=== PATIENT | male | born 1980 | race Caucasian/White ===

== ENCOUNTER 2021-09-11 18:23 | Emergency (ER) | payer MEDICARE, SELFPAY ==
[2021-09-11 18:25] VITALS: BP 174/107; PULSE 78; RESP 15; TEMP 36.7; O2SAT 98; BMI 35.1
[2021-09-11 18:28] VITALS: BP 174/107; PULSE 78; RESP 15; TEMP 36.7; O2SAT 98
--- NOTE | 2021-09-11 18:34 | ED.RN ---
LEFT PLANTAR FOOT ULCER. GRANULATION TISSUE PRESENT. NO REDNESS OR SWELLING. PT. REPORTS WAS SENT FOR PAIN CONTROL BECAUSE DOCTOR AT [facility] DID NOT WANT TO GIVE PAIN MEDICATION.
--- NOTE | 2021-09-11 18:45 | RAD_ITS ---
EXAM: XR LEFT FOOT COMPLETE, 3 OR MORE VIEWS CLINICAL INDICATION: Injury/Pain TECHNIQUE: Frontal, lateral and oblique views of the left foot. This report was created using [employer] report generation technology. COMPARISON: None. FINDINGS: BONES/JOINTS: There is a calcaneal spur. There is an enthesophyte involving the posterior superior calcaneus at the site of insertion of the Achilles tendon. 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 No acute fracture. No subluxation. Normal alignment. Preservation of the joint space. No sclerotic or destructive changes observed. SOFT TISSUES: Soft tissue swelling of the foot. Plantar ulcer visualized at the level of the metatarsophalangeal joints. No radiopaque foreign body. RAD/Foot min 3 Views IMPRESSION: Soft tissue swelling of the foot. Plantar ulcer visualized at the level of the metatarsophalangeal joints. Electronically Signed: Haider Caraballo MD at 19:14 EST ,
--- NOTE | 2021-09-11 18:45 | EDS_ITS ---
HPI History of Present Illness Chief Complaint: Lower Extremity Injury Detail of Chief Complaint: Atraumatic left great toe pain Informant: patient Onset/Context/Timing Onset: Days (Onset Saturday) Context: Sudden Onset Timing: Continuous Quality: Pain Location: Left great toe Current Severity: Moderate Maximum Severity: Severe Worsened by: Movement or pressure Relieved by: Nothing Associated Symptoms Associated Symptoms: Nothing Narrative Narrative: Patient is a 40-year-old male with history of type 1 diabetes poorly controlled, depression, hypertension. He is not on a thiazide diuretic. He is also on Xarelto. He denies history of gout or pseudogout. He denies fever, chills night sweats. Prior similar symptoms: No Recent Illness/Hospitalization: No [facility] Medical History Chronic kidney disease Type 1 diabetes Home Medications acetaminophen 650 mg PO Q4H PRN 09/11/21 [History Last Taken Unknown] amlodipine 10 mg PO DAILY 09/11/21 [History Last Taken Unknown] amoxicillin-pot clavulanate [Augmentin] 1 tab PO Q12H 09/11/21 [History Last Taken Unknown] atenolol 50 mg PO BID 09/11/21 [History Last Taken Unknown] doxycycline hyclate 100 mg PO BID 09/11/21 [History Last Taken Unknown] gabapentin 600 mg PO TID 09/11/21 [History Last Taken Unknown] hydrocodone-acetaminophen 1 tab PO Q6H PRN PRN 3 Days #10 tablet 09/11/21 [Rx Last Taken Unknown] insulin glargine [Basaglar KwikPen U-100 Insulin] 36 unit SUBCUT QPM 09/11/21 [History Last Taken Unknown] insulin lispro [Humalog Hood KwikPen U-100] 10 unit SUBCUT TID 09/11/21 [History Last Taken Unknown] lidocaine [Lidocaine Pain Relief] 1 patch TOPICAL DAILY 09/11/21 [History Last Taken Unknown] pantoprazole 20 mg PO DAILY 09/11/21 [History Last Taken Unknown] prednisone 60 mg PO DAILY #15 tablet 09/11/21 [Rx Last Taken Unknown] rivaroxaban [Xarelto] 20 mg PO DAILY 09/11/21 [History Last Taken Unknown] tramadol 50 mg PO Q6H PRN 09/11/21 [History Last Taken Unknown] trazodone 150 mg PO QHS 09/11/21 [History Last Taken Unknown] Allergy/AdvReac Type Severity Reaction Status Date / Time No Known Allergies Allergy Verified 09/11/21 18:29 Social History (Updated 09/11/21 @ 18:[address] Ed Lopez MD) household members: none Smoking Status: Never smoker substance use type: does not use ROS ROS ED Constitutional Constitutional ED: Denies chills, fever(s), subjective, sweats or weight loss Eyes Eyes: Denies blurry vision, change in vision or diplopia Cardiovascular Cardiovascular: Denies chest pain or palpitations Respiratory/Chest Respiratory/Chest: Denies cough, dyspnea or dyspnea on exertion Gastrointestinal Gastrointestinal: Denies abdominal pain, nausea or vomiting Musculoskeletal Musculoskeletal: Reports other Details: Left great toe pain ; Denies arthralgias, back pain, myalgias or neck pain Integumentary Denies abscess, Abrasions or rash Neurologic Neurologic: Denies paresthesias or weakness Endocrine Endocrinology: Denies polydipsia, polyphagia or polyuria EXAM Physical Exam Const Vital Signs: 09/11/21 18:25 09/11/21 18:28 Temperature 98.1 F 98.1 F Temperature Source Oral Oral Pulse Rate 78 78 Respiratory Rate 15 15 Blood Pressure 174/107 H 174/107 H Blood Pressure Mean 129 129 Pulse Ox 98 98 Oxygen Delivery Method Room Air Room Air Positive well nourished, well developed, obese and unkempt General Appearance ED: unkempt and well developed; Negative for cyanotic, di aphoretic or NAD Nutritional Appearance: obese HEENT Reports moist mucous membranes Negative for trauma or tenderness Eyes PERRL and EOMs intact bilaterally General Eye ED: Negative for pale conjunctiva or scleral icterus Neck no lymphadenopathy, supple and no JVD Resp normal respiratory effort and clear to auscultation bilaterally Cardio regular rate, regular rhythm, S1 normal heart sound, S2 normal heart sound and no murmurs Extremity Negative for normal to inspection Extremity Narrative: Pain to palpation left great toe with passive flexion and extension. General Extremety ED: Yes tenderness; Negative for edema General Extremity: Negative for edema Neuro oriented x3 and CN's II-XII intact bilaterally Sensorium / Orientation: alert Psych Appearance: unkempt Skin no rashes or lesions noted and No no wounds Skin Narrative: Chronic wound plantar surface left foot. No evidence of infection. 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 Will treat with hydrocodone. Will confirm if patient is still on Xarelto. Will treat with prednisone. Will check GGT since he is poorly compliant and had elevated blood sugars in the past and his last A1c was 9.1. Lab Data Labs: Laboratory Results - last 24 hr 09/11/21 18:55 POC Glucose 115 H Radiography Chest X-Ray - ED: Read by ED Physician (Three-view x-ray of the foot reveals no acute pathology. There is evidence of soft tissue swelling. Patient's left little toe has been amputated as well as the distal half of the fifth metatarsal.) Diagnostic Testing: Clinical Impression(s) from Imaging Studies Foot X-Ray 09/11/21 18:45 IMPRESSION: Soft tissue swelling of the foot. Plantar ulcer visualized at the level of the metatarsophalangeal joints. Electronically Signed: Haider Caraballo MD at 19:14 EST Reading Location ID and State: [facility] / [place] , Service support , Discharge Plan Triage Chief Complaint: Lower Extremity Injury ED Provider: Ed Lopez Dx/Rx/DC Orders Clinical Impression: Crystal induced arthropathy Instructions: ED Gout Prescriptions: New hydrocodone-acetaminophen [hydrocodone-acetaminophen] 1 TABLET tablet 1 tab PO Q6H PRN PRN (Reason: Pain) 3 Days Qty: 10 RF: 0 prednisone 20 MG tablet 60 mg PO DAILY Qty: 15 RF: 0 No Action acetaminophen 325 mg Tablet 650 mg PO Q4H PRN (Reason: Pain) RF: 0 gabapentin 600 mg Tablet 600 mg PO TID RF: 0 doxycycline hyclate 100 mg Capsule 100 mg PO BID RF: 0 lidocaine [Lidocaine Pain Relief] 4 % Adhesive Patch,Medicated 1 patch TOPICAL DAILY RF: 0 tramadol 50 mg Tablet 50 mg PO Q6H PRN (Reason: Pain) RF: 0 pantoprazole 20 mg Tablet,Delayed Release (Dr/Ec) 20 mg PO DAILY RF: 0 amlodipine 10 mg Tablet 10 mg PO DAILY RF: 0 trazodone 150 mg Tablet 150 mg PO QHS RF: 0 atenolol 50 mg Tablet 50 mg PO BID RF: 0 amoxicillin-pot clavulanate [Augmentin] 875-125 mg Tablet 1 tab PO Q12H RF: 0 Basaglar KwikPen U-100 Insulin 100 unit/mL (3 mL) Insulin Pen 36 unit SUBCUT QPM RF: 0 Xarelto 20 mg Tablet 20 mg PO DAILY RF: 0 insulin lispro [Humalog Hood KwikPen U-100] 100 unit/mL Insulin Pen, Half- Unit 10 unit SUBCUT TID RF: 0 Primary Care Provider: Joan Yanes Referrals: Joan Yanes MD [Primary Care Provider] - 3-5 Days if not improving Disposition Disposition: Home, Self Care
[2021-09-11] MEDS: HYDROcodone Bitartrate/Apap 5/325 Tablet PO (18:53)
[2021-09-11 19:00] LABS: Bedside Glucose 115 mg/dL (70-110)
[2021-09-11 19:26] VITALS: BP 153/95; PULSE 88; RESP 14; O2SAT 99
[2021-09-11] MEDS: predniSONE 20 MG Tablet 60 MG PO (19:34)
--- NOTE | 2021-09-11 19:57 | ED.RN ---
CALL[facility] FOR [facility] FOR THIS PATIENT, THE ETA IS 2 HOURS AT 19:57
[2021-09-11 20:58] VITALS: BP 145/80; PULSE 88; RESP 18; O2SAT 99
== END 2021-09-11 21:34 | disposition home or self-care (01) ==
PROVIDERS: Emergency Provider Emergency Medicine; PCP Internal Medicine; Visit Provider Emergency Medicine
DX: M11.9 Crystal arthropathy, unspecified (principal); E10.621 Type 1 diabetes mellitus with foot ulcer; E10.22 Type 1 diabetes mellitus with diabetic chronic kidney disease; Z79.4 Long term (current) use of insulin; I12.9 Hypertensive chronic kidney disease with stage 1 through stage 4 chronic kidney disease, or unspecified chronic kidney disease; N18.9 Chronic kidney disease, unspecified
CPT/HCPCS: 73630; 82962; 99285